=== PATIENT | female | born 1970 | race Caucasian/White ===

== ENCOUNTER 2021-07-28 18:10 | Emergency (ER) | payer OTHER, SELFPAY ==
--- NOTE | ~2021-07-28 | XR_ITS ---
EXAMINATION: XR LUMBOSACRAL SPINE CLINICAL INFORMATION: Severe low back pain. History of fracture. COMPARISON: None TECHNIQUE: Four views of the lumbosacral spine. FINDINGS: There is a chronic superior endplate compression deformity at the L2 vertebral body with approximately 35 percent loss of vertebral body height centrally. No acute vertebral body fractures are identified. No spondylolisthesis. There is multilevel degenerative spondylosis in the lower thoracic and lumbar spine. The degenerative disc disease most pronounced in the lower lumbar spine from L3-L4 through L5-S1 with loss of intervertebral disc height, endplate osteophytes, and endplate sclerosis. Facet arthropathy is also noted in the lower lumbar spine. There is mild to moderate osteoarthritis in the SI joints. Bones are osteopenic. No osseous lesions are identified. Calcific atherosclerosis is present in the abdominal aorta. No acute soft tissue findings. XR/XR lumbar spine 2-3V IMPRESSION: 1. No acute fracture or malalignment. 2. Multilevel degenerative spondylosis in the lumbar spine, most pronounced in the lower lumbar spine at L4-L5 and L5-S1. 3. Chronic superior endplate compression fracture.
--- NOTE | 2021-07-28 18:15 | ED_ITS ---
HPI - Back Pain/Injury General Chief Complaint: Back Pain/Injury Stated Complaint: H/O LOWER BACK COMP FX,INCREASED AMB DIFFI Time Seen by Provider: 07/28/21 18:15 Source: patient and EMS Mode of arrival: EMS Limitations: no limitations History of Present Illness HPI Narrative: 50 yo female with low back pain 2/2 compression fracture back in January 2021, opiate use disorder on Methadone 50 mg per day, anxiety who presents to the ER via EMS from her [facility] home with acute on chronic low back pain. She reports for the last few weeks the pain has gotten worse. She denies and fall or injury. She reports tonight she just could not take the pain any longer. She has been having difficulty performing her ADL's due to severe pain. She does not have a PCP and has not seen any doctor for this aside from ER doctors as [facility]. She denies numbness, tingling or weakness in her legs however she reports difficulty ambulating due to the pain. She denies saddle parestheias, urinary or bowel incontinence. MD elicited complaint: back pain Pertinent past history: prior back pain Onset (ago): month(s) Timing: constant Severity: severe Similar Symptoms Previously: Yes Quality: sharp, aching and spasming Location: lumbar spine and right lower back Radiation: buttocks Exacerbating factors: movement, walking and lifting Relieving factors: immobilization Context: unknown Associated symptoms: difficulty walking Work related injury: No Related Data Previous Rx's Medication Instructions Recorded cyclobenzaprine 10 mg tablet 10 mg PO TID PRN #14 tab 07/28/21 ibuprofen 600 mg tablet 600 mg PO Q8H PRN #20 tab 07/28/21 lidocaine 5 % topical patch 1 patch TOPICAL DAILY #15 ea 07/28/21 Allergies Allergy/AdvReac Type Severity Reaction Status Date / Time No Known Allergies Allergy Unverified 03/08/20 15:36 Review of Systems Verdana 4l Review of Systems: Verdana 4d Verdana 4d Constitutional: No Fever, No Chills Cardiovascular: No Chest Pain, No SOB Gastrointestinal: No Nausea, No Vomiting, No Diarrhea, No abdominal Pain Genitourinary: No Dysuria, No Urinary Frequency, No Hematuria, No urinary incontinence MusculoskeletalMusculoskeletal: + joint pain, + Myalgias Skin: No Skin Lesions, No rash Neuro: No Weakness, No Numbness Heme/Lymph: No Bruising PMFSH Past Medical History Medical History (Updated 07/28/21 @ 19:18 by LEIGH Hull) Substance abuse Social History Social History Alcohol intake: unknown Smoked in Last 30 Days: Yes Use of substances other than those prescribed or required for medical reasons: No Substance Use Type: Former Substance User and Heroin Substance Use Frequency Other:: CLEAN SINCE JANUARY PER PATIENT. Any prior treatment program specific to substance use: Yes (ON METHADONE) Advance Directives: No Advance Directives Information Provided: No Patient : No Physical Exam Verdana 4l Vital Signs: Verdana 4d Verdana 4d Vital Signs: Verdana 4d Verdana 4Bd Last Vital Signs Verdana 4d Product Marketing Executive New 4d Product Marketing Executive New 4d Temp 98.1 F 07/28/21 18:32 Product Marketing Executive New 4d Pulse 83 07/28/21 18:32 Product Marketing Executive New 4d Resp 16 07/28/21 18:32 BP 110/70 07/28/21 18:32 Pulse Ox 95 07/28/21 18:32 BMI result Body Mass Index 28.1 Appearance: Alert. Oriented X3. No acute distress. HEENT: normal external inspection Neck: Normal inspection. Neck supple. CVS: Normal heart rate and rhythm. Pulses normal. Respiratory: No respiratory distress. Breath sounds normal. Abdomen: Obese, Soft and nontender. +BS x4 Back: right middle, and lower lumbar soft tissues with tenderness and spasm. midline lumbar tenderness and right sided SI joint tenderness. +straight leg raise test on the right. Skin: Skin warm and dry. Normal skin color. Normal skin turgor. No rashes. Extremities: Atraumatic x4, normal inspection. No lower extremity edema. Neuro: Oriented X 3. No motor deficit. No sensory deficit. Course Course Course Narrative: T1 year old female here with acute on chronic low back pain. No recent trauma. History of compression fracture back in January. She has no red flag symptoms of low back pain. She is not an IV drug user and has not have any fevers. She is on maintenance methadone and has not been taking any opiates for her back pain. Will get x-ray of lumbar spine to reassess compression fracture. Will treat with IM Toradol and Flexeril. Will reassess. Reevaluation(s) Reevaluation #1: Pain is improved. Her x-ray showing severe spondylosis of the lumbar spine. No compression fractures. She has no primary doctor at this time. A list was provided. Will refer to Dr. Fernandez for pain management and assessment for possible injections. Will d/c with NSAID, muscle relaxer and lidoderm patches. Patient agrees with plan and return precautions were discussed. Stable for d/c home. Discharge Plan Discharge Clinical Impression: Low back pain Patient Disposition: Home, Self-Care Instructions: Chronic Back Pain (DC) Additional Instructions: Your x-ray today showed severe intervertebral disc disease, no fractures. No bending, lifting or twisting. Use ice several times per day for 20 minutes at a time for the next 48 hours and then change to heat. Take medications as prescribed to help with pain and discomfort. Follow up with a Primary Care Doctor [facility] If your pain worsens, if you develop new numbness, tingling, weakness, loss of function or incontinence call 911 or come back to the ER right away for evaluation. Prescriptions: New ibuprofen 600 mg tablet 600 mg PO Q8H PRN (Reason: pain) Qty: 20 0RF lidocaine 5 % adhesive patch,medicated 1 patch topical DAILY Qty: 15 0RF Rx Instructions: leave on most painful area for up to 12 hrs cyclobenzaprine 10 mg tablet 10 mg PO TID PRN (Reason: muscle spasm) Qty: 14 0RF Referrals: Pedro Luis Fernandez MD [Physician] - 2 days (severe chronic low back pain)
[2021-07-28 18:32] VITALS: BP 110/70; PULSE 83; RESP 16; TEMP 36.7; O2SAT 95; BMI 28.1
[2021-07-28 18:38] VITALS: BP 115/84; PULSE 80; O2SAT 95
--- NOTE | 2021-07-28 18:40 | PC.NURSE ---
PT LIVES IN [facility]. UNSUPERVISED. HAS ROOM MATES. STATES NO PCP. NO HI/SI.
[2021-07-28] MEDS: Cyclobenzaprine HCl 10 MG TABLET PO (19:05)
[2021-07-28] MEDS: Ketorolac Tromethamine 30 MG/ML VIAL IM (19:05)
--- NOTE | 2021-07-28 19:50 | PC.NURSE ---
PT STATES CAME BY AMBULANCE AND HAS NO WAY HOME. PT STATES HAS MADE CALLS. DARRON FROM [facility] CALLED AND SHE WILL TRY TO GET A LIFT. PT TO WAIT IN [facility].
== END 2021-07-28 19:54 | disposition home or self-care (01) ==
PROVIDERS: Emergency Provider Emergency Medicine Emergency Medical Services
DX: M54.50 Low back pain, unspecified (principal); Z79.899 Other long term (current) drug therapy
CPT/HCPCS: 72100; 96372; 99284; J1885

== ENCOUNTER → 2021-08-09 09:46 | Outpatient (BNVA) | payer OTHER, SELFPAY | PROVIDERS: PCP Internal Medicine; Visit Provider Nurse Practitioner Family | DX: M47.816 Spondylosis without myelopathy or radiculopathy, lumbar region (principal); S32.020A Wedge compression fracture of second lumbar vertebra, initial encounter for closed fracture | CPT/HCPCS: 99202 ==

== ENCOUNTER 2021-08-21 13:19 | Outpatient (REF) | payer OTHER, SELFPAY ==
--- NOTE | ~2021-08-21 | MR_ITS ---
EXAMINATION: MR LUMBAR SPINE WITHOUT CONTRAST CLINICAL INFORMATION: Wedge compression fracture of L2. COMPARISON: Lumbar spine radiographs from 07/28/2021. TECHNIQUE: MRI of the lumbar spine was obtained using routine sequences without contrast. FINDINGS: Straightening of the normal lumbar lordosis. Otherwise, normal anatomic alignment. Anterior wedge deformity of the L2 vertebral body with 30% loss of anterior body height. No residual marrow edema. Moderate to advanced degenerative disc disease from L3-S1. Moderate degenerative disc disease at T10-T11, T11-T12, L1-L2, and L2-L3. Associated mixed Modic type discogenic endplate changes including minimal Modic type I discogenic edema at multiple levels. No additional suspicious marrow edema. The remaining vertebral body heights are largely maintained. The conus medullaris terminates at the level of L1-L2. The distal spinal cord is normal in appearance. Moderate subcutaneous edema within the soft tissues of the back from L1-L3. No additional significant abnormalities of the paraspinal musculature. Limited evaluation of the intra-abdominal structures without significant abnormalities. The abdominal aorta is of normal contour and caliber. AXIAL SPINAL LEVELS: L1-L2: Moderate degenerative disc disease with superimposed left subarticular disc extrusion. There is mild bilateral facet joint arthropathy. There is mild bilateral neural foraminal stenosis. There is moderate to severe spinal canal stenosis. L2-L3: Moderate diffuse disc bulge with superimposed left foraminal disc protrusion. There is severe right and moderate left facet joint arthropathy. There is mild left and no right neural foraminal stenosis. There is moderate spinal canal stenosis exacerbated by prominent dorsal epidural lipomatous tissue. L3-L4: Moderate diffuse disc bulge with posterior osseous ridging. There is severe right and moderate left facet joint arthropathy. There is mild bilateral neural foraminal stenosis. There is moderate spinal canal stenosis exacerbated by prominent dorsal epidural lipomatous tissue. L4-L5: Moderate diffuse disc bulge with posterior osseous ridging and superimposed shallow central disc protrusion. There is moderate bilateral facet joint arthropathy. There is moderate left worse than right neural foraminal stenosis. There is moderate spinal canal stenosis exacerbated by prominent dorsal epidural lipomatous tissue. L5-S1: Moderate diffuse disc bulge with posterior osseous ridging eccentric to the left. There is severe right and moderate left facet joint arthropathy. There is moderate left and mild right neural foraminal stenosis. There is effacement of the thecal sac exacerbated by prominent dorsal epidural lipomatous tissue. MR/MR lumbar spine wo con IMPRESSION: 1. Anterior wedge deformity of L2 without significant residual marrow edema. 2. Moderate to advanced multilevel degenerative spondyloarthropathy of the lumbar spine as described in detail above. Most notably, there is a disc extrusion at L1-L2 resulting in moderate to severe spinal canal stenosis at this level. There are also moderate spinal canal stenoses from L2-L5 exacerbated by prominent dorsal epidural lipomatous tissue. Moderate neural foraminal stenoses at L4-L5 and L5-S1.
== END 2021-08-21 13:20 | disposition home or self-care (01) ==
LOC: HO.MRI 13:19
PROVIDERS: Visit Provider Nurse Practitioner Family
DX: M47.816 Spondylosis without myelopathy or radiculopathy, lumbar region (principal); S32.020A Wedge compression fracture of second lumbar vertebra, initial encounter for closed fracture; X58.XXXA Exposure to other specified factors, initial encounter; Y93.9 Activity, unspecified; Y92.9 Unspecified place or not applicable; Y99.9 Unspecified external cause status
CPT/HCPCS: 72148

== ENCOUNTER → 2021-08-30 15:18 | Outpatient (BNVA) | payer OTHER, SELFPAY | PROVIDERS: PCP Internal Medicine; Visit Provider Nurse Practitioner Family ==

== ENCOUNTER 2021-12-13 19:58 | Emergency (ER) | payer OTHER, SELFPAY ==
--- NOTE | ~2021-12-13 | XR_ITS ---
EXAMINATION: XR RIBS, LEFT CLINICAL INFORMATION: Fall with pain COMPARISON: None TECHNIQUE: Single view of the chest and for detailed views of left RIBS FINDINGS: The chest film shows some lobulated densities on the right which may be pleural. On the left there is no pneumothorax or effusion. Cardiac silhouette is within normal limits. Detail views of left RIBS demonstrate a step-off involving the ninth rib anteriorly. Fracture would need to be considered. XR/XR ribs LT min 3V w CXR1V IMPRESSION: Step-off involving the ninth rib anteriorly on the left. Fracture needs to be considered here. There is no underlying pneumothorax or effusion. Chest film shows some lobulated density in the mid lung zone on the right laterally. This may be pleural in etiology. I've no films to compare. Recommend CT to fully evaluate. This may be done on an outpatient basis.
--- NOTE | ~2021-12-13 | XR_ITS ---
EXAMINATION: XR HIP, LEFT CLINICAL INFORMATION: Fall. Pain. COMPARISON: None TECHNIQUE: Frontal view of pelvis Two views of the left hip. FINDINGS: No fracture of pelvis or hips. Mild subchondral sclerosis of the symphysis pubis. Sacroiliac joints are normal. Hip joints are normal. Degenerative spondylosis lower lumbar spine. Vacuum disc phenomenon and endplate spurs at L4-L5. XR/XR hip LT min 2V IMPRESSION: No acute abnormality of pelvis or hips
[2021-12-13 20:07] VITALS: BP 140/100; PULSE 110; O2SAT 98
[2021-12-13 20:16] VITALS: BP 152/74; PULSE 110; RESP 20; TEMP 36.8; O2SAT 94; BMI 33.6
[2021-12-13 23:28] VITALS: BP 115/75; PULSE 85; RESP 20; O2SAT 92
--- NOTE | 2021-12-14 00:06 | ED_ITS ---
HPI - Fall General Chief Complaint: Fall Stated Complaint: fall Time Seen by Provider: 12/13/21 23:56 Source: patient Mode of arrival: EMS Limitations: no limitations History of Present Illness HPI Narrative: 51 yo female with chronic pain issues states she tripped on gravel tonight and fell, hx of falls in the past denies substance abuse states she did not strike her head. She denies LOC to me which is different from triage. She is not on DOAC. She reports most of her pain is on left ribs. She also scraped her R forearm and has some mild pubic pain. complaint: fall Onset (ago): minute(s) (just prior to arrival) Fall from: standing Fall witnessed: no Place fall occurred: home Loss of consciousness: none Prolonged down time: no Symptoms prior to fall: none Context: tripped/slipped Location of injury: chest (left ribs) and pelvis Location of injury - extremities: right: forearm Severity: moderate Quality: aching Associated symptoms (after fall): denies Related Data Home Medications Medication Instructions Recorded Confirmed bupropion HCl 150 mg tablet,12 hr 150 mg PO DAILY 08/09/21 sustained-release clonidine HCl 0.1 mg tablet 0.1 mg PO TID 08/09/21 gabapentin 600 mg tablet 600 mg PO TID 08/09/21 lorazepam 1 mg tablet mg PO 08/09/21 methadone 10 mg/mL oral syringe 50 mg PO DAILY 08/09/21 (FOR ORAL USE ONLY) olanzapine 5 mg tablet 5 mg PO BEDTIME 08/09/21 quetiapine 100 mg tablet 100 mg PO BEDTIME 08/09/21 sertraline 100 mg tablet 100 mg PO BID 08/09/21 topiramate 100 mg tablet 100 mg PO DAILY 08/09/21 Previous Rx's Medication Instructions Recorded cyclobenzaprine 10 mg tablet 10 mg PO TID PRN muscle spasm #14 07/28/21 tabs ibuprofen 600 mg tablet 600 mg PO Q8H PRN pain #20 tabs 07/28/21 lidocaine 5 % topical patch 1 patch topical DAILY #15 ea 07/28/21 acetaminophen 500 mg tablet 500 mg PO Q6H PRN fever or pain 12/14/21 #30 tabs lidocaine 5 % topical patch 1 patch topical DAILY #30 ea 12/14/21 Allergies Allergy/AdvReac Type Severity Reaction Status Date / Time No Known Allergies Allergy Verified 08/30/21 15:20 Review of Systems Review of Systems: Constitutional : No Fever, No Chills ENT/Mouth : No Ear Pain, No Hoarseness, No sore throat Eyes: No Eye Pain, No Swelling, No Redness, No Foreign Body Cardiovascular : No Chest Pain, No SOB, pos rib pain Respiratory : No Cough, No Dyspnea Gastrointestinal : No Nausea, No Vomiting, No Diarrhea, No abdominal Pain Genitourinary : No Dysuria, No Hematuria Musculoskeletal : no joint pain, No Myalgias, No Joint Swelling Skin : No Skin lacerations, No rash, pos abrasions Neuro : No Weakness, No Numbness, No Loss of Consciousness, No Dizziness, No Headache Psych : No Anxiety/Panic, No Depression Heme/Lymph: no easy bruising, no Lymphadenopathy Endocrine : No Polyuria, No Polydipsia All other systems reviewed and are negative FOR[facility]LY [facility], [facility] Past Medical History Attestation statement: The following information was validated with the patient. Medical History Stenosis, spinal, lumbar Substance abuse Social History Social History Alcohol intake: never Patient Tobacco Use Status: Current everyday Tobacco user Use of substances other than those prescribed or required for medical reasons: Yes Substance Use Type: Marijuana Substance Use Frequency: Occasionally Advance Directives: No Physical Exam Vital Signs: Vital Signs: Last Vital Signs Temp 98.2 F 12/13/21 20:16 Pulse 85 12/13/21 23:28 Resp 20 12/13/21 23:28 BP 115/75 12/13/21 23:28 Pulse Ox 92 12/13/21 23:28 O2 Del Method 12/13/21 23:28 BMI result Body Mass Index 33.6 Appearance: Alert. Oriented X3. No acute distress. Eyes: Pupils equal, round and reactive to light. ENT: Pharynx normal. Atraumatic Neck: Normal inspection. Neck supple. CVS: Normal heart rate and rhythm. Pulses normal. Respiratory: No respiratory distress. Breath sounds normal. Chest wall: ttp along left lower ribs Abdomen: Soft and nontender. pubic bone anteriorly mild ttp Skin: Skin warm and dry. Normal skin color. Normal skin turgor. Extremities: No lower extremity edema. No calf ttp Neuro: Oriented X 3. No motor deficit. No sensory deficit. MDM - Fall MDM Narrative Medical decision making narrative: 51 yo female reports mechanical fall to me no AC therapy, no LOC no head strike likely L rib fracture - I offered CT scans of chest/pelvis for further evaluation of trauma but she denies. I instructed her to return if pain worsens. Will offer PO pain medications in ED. She is on methadone. Instructed to return at any time. Stable for DC Discharge Plan Discharge Clinical Impression: Abrasion Fracture of rib Qualifiers: Encounter type: initial encounter Rib fracture type: single rib Fracture type: closed Laterality: left Qualified Code(s): S22.32XA - Fracture of one rib, left side, initial encounter for closed fracture Patient Disposition: Home, Self-Care Instructions: Rib Fracture (ED), Abrasion (ED), Bone Bruise (ED) Additional Instructions: return to ED for any worsening symptoms or concerns you were offered CT scans for further evaluation of your pelvic pain and chest f or rib fractures if you change your mind return at any time. you will need a CT scan of your chest to evaluate for area on right lung please notify your primary care doctor ?Step-off involving the ninth rib anteriorly on the left. Fracture needs to be considered here. There is no underlying pneumothorax or effusion. ? Chest film shows some lobulated density in the mid lung zone on the right laterally. This may be pleural in etiology. I've no films to compare. Recommend CT to fully evaluate. This may be done on an outpatient basis. Prescriptions: New lidocaine 5 % adhesive patch,medicated 1 patch topical DAILY Qty: 30 0RF Rx Instructions: leave on most painful area for up to 12 hrs acetaminophen 500 mg tablet 500 mg PO Q6H PRN (Reason: fever or pain) Qty: 30 0RF Rx Instructions: not to exceed more than 4 pills a day No Action ibuprofen 600 mg tablet 600 mg PO Q8H PRN (Reason: pain) Qty: 20 0RF lidocaine 5 % adhesive patch,medicated 1 patch topical DAILY Qty: 15 0RF Rx Instructions: leave on most painful area for up to 12 hrs cyclobenzaprine 10 mg tablet 10 mg PO TID PRN (Reason: muscle spasm) Qty: 14 0RF sertraline 100 mg tablet 100 mg PO BID olanzapine 5 mg tablet 5 mg PO BEDTIME clonidine HCl 0.1 mg tablet 0.1 mg PO TID quetiapine 100 mg tablet 100 mg PO BEDTIME topiramate 100 mg tablet 100 mg PO DAILY lorazepam 1 mg tablet PO gabapentin 600 mg tablet 600 mg PO TID bupropion HCl 150 mg tablet sustained-release 12 hr 150 mg PO DAILY methadone 10 mg/mL syringe 50 mg PO DAILY Referrals: Avelino Bass MD [Primary Care Provider] - 12/16/21 Stand Alone Forms: Work/School Release
[2021-12-14] MEDS: oxyCODONE HCl Immed Release 5 MG TABLET PO (00:13)
[2021-12-14] MEDS: Lidocaine 4 % Patch ADH..PATCH 1 PATCH TRANSDERMA (00:13)
[2021-12-14 00:16] VITALS: BP 124/72; PULSE 86; RESP 20; O2SAT 94
== END 2021-12-14 01:04 | disposition home or self-care (01) ==
PROVIDERS: Emergency Provider Emergency Medicine; PCP Internal Medicine
DX: S29.9XXA Unspecified injury of thorax, initial encounter (principal); S39.93XA Unspecified injury of pelvis, initial encounter; M25.552 Pain in left hip; M79.631 Pain in right forearm; R07.81 Pleurodynia; W01.0XXA Fall on same level from slipping, tripping and stumbling without subsequent striking against object, initial encounter; Y93.9 Activity, unspecified; Y92.9 Unspecified place or not applicable; Y99.9 Unspecified external cause status; Z79.899 Other long term (current) drug therapy
CPT/HCPCS: 71101; 73502; 99283; 99284